=== PATIENT | female | born 1930 | race African-American/Black ===

== ENCOUNTER 2016-07-17 09:58 | Outpatient (CLI) | payer MEDICARE ==
[2016-07-17 11:21] LABS: #Lymphocytes 1.3 thou/uL (1.20-3.40); #Monocytes 0.4 thou/uL (0.11-0.59); #Neutrophils 1.7 thou/uL (1.40-6.50); %Basophils 2.4 % (0.0-1.0); %Eosinophils 3.9 % (0.0-10.0); %Lymphocytes 35.7 % (21.0-51.0); %Monocytes 11.6 % (0.0-10.0); %Neutrophils 46.4 % (42.0-75.0); Hemoglobin 13.2 g/dL (12.0-16.0); Mean Corpuscular HGB CONC 31.9 g/dL (32.0-36.0); Mean Corpuscular Hemoglobin 30.1 pg (27.0-31.0); Mean Corpuscular Volume 94.2 fL (81.0-99.0); Mean Platelet Volume 10.3 fL (7.4-10.4); Platelet Count 204 thou/uL (130-400); Red Blood Cell (RBC) Count 4.38 mill/uL (4.20-5.40); White Blood Cell (WBC) Count 3.7 thou/uL (4.8-10.8)
[2016-07-17 11:22] LABS: #Basophils 0.1 thou/uL (0.0-0.2); #Eosinphils 0.1 thou/uL (0.0-0.7)
[2016-07-17 11:36] LABS: ALT (SGPT) 13 U/L (0-55); AST (SGOT) 16 U/L (5-34); Albumin 4.1 g/dL (3.4-4.8); Alkaline Phosphatase 45 U/L (40-150); Anion Gap 13 mmol/L (10-20); BUN (Urea Nitrogen) 10 mg/dL (9.8-20.1); Bilirubin, Direct 0.3 mg/dL (0.1-0.3); Bilirubin, Total 0.8 mg/dL (0.2-1.2); Calc. Creatinine Clearance 0 mL/min (70-130); Calcium 9.7 mg/dL (7.8-10.44); Carbon Dioxide 30 mmol/L (23-31); Cardiac Risk 2.2 (Less than 4.5); Chloride 104 mmol/L (98-107); Cholesterol 159 mg/dL (< 200 Desired); Estimated GFR-MDRD 77; Glucose 90 mg/dL (83-110); HDL Cholesterol 72 mg/dL (>60 Neg Risk); LDL Cholesterol, Calculated 78 mg/dL; Potassium 3.7 mmol/L (3.5-5.1); Protein, Total 7.3 g/dL (5.8-8.1); Sodium 143 mmol/L (136-145); Triglycerides 46 mg/dL (Less than 150)
== END 2016-07-17 09:59 | disposition home or self-care (01) ==
LOC: MADLABBHPM 09:58
PROVIDERS: ATTEND Family Medicine
DX: I10 Essential (primary) hypertension (principal)
CPT/HCPCS: 36415; 80048; 80061; 80076; 85025

== ENCOUNTER 2016-10-17 09:30 | Outpatient (CLI) | payer MEDICARE ==
[2016-10-17 11:12] LABS: ALT (SGPT) 13 U/L (8-55); AST (SGOT) 16 U/L (5-34); Albumin 3.9 g/dL (3.4-4.8); Alkaline Phosphatase 49 U/L (40-150); Anion Gap 12 mmol/L (10-20); BUN (Urea Nitrogen) 12 mg/dL (9.8-20.1); Bilirubin, Direct 0.4 mg/dL (0.1-0.3); Calc. Creatinine Clearance 0 mL/min (70-130); Calcium 9.6 mg/dL (7.8-10.44); Carbon Dioxide 29 mmol/L (23-31); Cardiac Risk 2.2 (Less than 4.5); Chloride 104 mmol/L (98-107); Cholesterol 162 mg/dl (< 200 Desired); Estimated GFR-MDRD 77; Glucose 90 mg/dL (83-110); HDL Cholesterol 74 mg/dL (>60 Neg Risk); LDL Cholesterol, Calculated 77 mg/dL; Potassium 3.8 mmol/L (3.5-5.1); Protein, Total 7.5 g/dL (6.0-8.3); Sodium 141 mmol/L (136-145); Triglycerides 55 mg/dL (Less than 150)
== END 2016-10-17 09:31 | disposition home or self-care (01) ==
LOC: MADLABBHPM 09:30
PROVIDERS: ATTEND Family Medicine
DX: E78.00 Pure hypercholesterolemia, unspecified (principal)
CPT/HCPCS: 36415; 80048; 80061; 80076

== ENCOUNTER 2016-11-01 21:35 | Emergency (ER) | payer MEDICARE ==
[~2016-11-01 21:35] MED LIST: Iopamidol 370 76% 100 ML VIAL ONE
[2016-11-01] MEDS ORDERED: Ondansetron ODT 4 MG TAB ONE (22:04)
[2016-11-01 22:47] LABS: Eosinophils 3 % (0-10); Lymphocytes 7 % (21-51); MDiff Complete? YES; Mean Corpuscular HGB CONC 31.4 g/dL (32.0-36.0); Mean Corpuscular Hemoglobin 29.5 pg (27.0-31.0); Mean Corpuscular Volume 93.9 fl (81.0-99.0); Mean Platelet Volume 9.2 fL (7.4-10.4); Monocytes 5 % (0-10); Neutrophil 85 % (42-75); PLT Morphology Comment Appears Adequate; Platelet Count 215 thou/uL (130-400); RBC Distribution Width 12.7 % (11.5-14.5); Red Blood Cell (RBC) Count 5.08 mill/uL (4.20-5.40); White Blood Cell (WBC) Count 9.7 thou/uL (4.8-10.8)
[2016-11-01 22:50] LABS: ALT (SGPT) 15 U/L (8-55); AST (SGOT) 17 U/L (5-34); Albumin 4.4 g/dL (3.4-4.8); Alkaline Phosphatase 56 U/L (40-150); Anion Gap 19 mmol/L (10-20); BUN (Urea Nitrogen) 11 mg/dL (9.8-20.1); Bilirubin, Total 1.1 mg/dL (0.2-1.2); CK (CPK) 177 U/L (29-168); Calc. Creatinine Clearance 0 mL/min (70-130); Calcium 9.9 mg/dL (7.8-10.44); Carbon Dioxide 25 mmol/L (23-31); Chloride 101 mmol/L (98-107); Estimated GFR-MDRD 71; Globulin 4.2 g/dL (2.4-3.5); Glucose 136 mg/dL (83-110); Lipase 13 U/L (8-78); Potassium 4.1 mmol/L (3.5-5.1); Protein, Total 8.6 g/dL (6.0-8.3); Sodium 141 mmol/L (136-145)
[2016-11-01 22:52] LABS: CKMB 3.1 ng/mL (0-6.6); Troponin I 0.011 ng/mL (< 0.028)
--- NOTE | 2016-11-02 00:07 | CT ---
CT OF ABDOMEN AND PELVIS 11/01/16 COMPARISON: None. HISTORY: Nausea and vomiting. TECHNIQUE: Serial axial CT imaging obtained at 5 mm intervals from lung bases through pubic symphysis with IV c ontrast. Coronal reformatted imaging obtained. FINDINGS: There is marked elevation of the left hemidiaphragm. Thus, the stomach, colon in the left upper quad rant, and the spleen are not fully imaged on this exam. Imaged lung parenchyma appears grossly unremarkable. As the upper abdomen is not fully evaluated, evaluation for free intraperitoneal air is limited. Numerous hypodensities are noted within the hepatic parenchyma, some of which are too small to josé antonio cterize. A hypodensity in the right lobe of the liver on image 25 measures approximately 1.8 cm, con sistent with a cyst. There is a prominent cyst, exophytic in nature, associated with the left lobe o f the liver, measuring 9.9 cm in transverse dimension. Imaged spleen appears grossly unremarkable. T here is small volume fluid within the stomach. The pancreas appears grossly unremarkable as do bilateral adrenal glands. There are numerous low density lesions scattered throughout both kidneys. Within the left kidney thi s includes an exophytic upper pole lesion with internal hyperdensity and Hounsfield units of approxi mately 44. This lesion measures 2.5 cm in craniocaudal dimension and is not consistent with a cyst. This could represent a complex cyst or a solid renal mass. Within the right kidney, there is a hyper dense exophytic upper pole lesion measuring 1.9 cm with Hounsfield units of 60, also not consistent with a simple cyst. Hemorrhagic/complex cyst or solid renal mass is a possibility. A similar 1.4 cm hyperdense lesion emanates from the posteromedial mid pole of the right kidney on image 30. There is abnormal small volume free fluid in the pelvic cul-de-sac. The imaged colon contains significant stool, especially the transverse colon in region of the spleni c flexure. There are multiple fluid filled loops of small bowel within the mid abdomen right of midline extendi ng into the right lower quadrant. There is some adjacent fluid within the mesentery adjacent to mult iple fluid filled mildly distended small bowel loops in this region. The appendix appears grossly unremarkable. No drainable fluid collection or extraluminal gas is seen in this region. There is scattered atherosclerotic calcification of the abdominal aorta and its branches. No pelvic, retroperitoneal or mesenteric lymphadenopathy. 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 No worrisome lytic or bl astic bone lesions are seen. The gallbladder appears grossly unremarkable. IMPRESSION: 1. Multiple fluid filled, mildly dilated loops of small bowel are noted within the right mid ab domen/right lower quadrant with adjacent free fluid and mesenteric stranding. This could be related to partial small bowel obstruction/developing small bowel obstruction, focal ileus or gastroenteriti s. Close followup imaging and clinical correlation is required. No evidence for abscess. Small volum e associated free fluid present. 2. Low density lesions within the liver. 3. Exophytic lesions are noted within both kidneys. In each kidney, there are lesions which do not meet criteria for simple cysts, differential diagnosis including solid renal masses and hyperden se/complex/hemorrhagic cysts. Followup CT examination of the abdomen with and without contrast using a renal mass protocol advised. POS: FELISHA
== END 2016-11-02 00:09 | disposition home or self-care (01) ==
LOC: MADERS 21:35
DX: K52.9 Noninfective gastroenteritis and colitis, unspecified (principal); N28.1 Cyst of kidney, acquired; E78.5 Hyperlipidemia, unspecified; I10 Essential (primary) hypertension; Z79.899 Other long term (current) drug therapy
CPT/HCPCS: 74177; 80053; 82550; 82553; 83690; 84484; 85025; Q0162

== ENCOUNTER 2017-01-22 08:37 | Outpatient (CLI) | payer MEDICARE ==
[2017-01-22 09:52] LABS: #Basophils 0.1 thou/uL (0.0-0.2); #Eosinphils 0.1 thou/uL (0.0-0.7); #Lymphocytes 1.3 thou/uL (1.20-3.40); #Monocytes 0.5 thou/uL (0.11-0.59); #Neutrophils 2.3 thou/uL (1.40-6.50); %Eosinophils 3.4 % (0.0-10.0); %Lymphocytes 30.3 % (21.0-51.0); %Monocytes 11.1 % (0.0-10.0); %Neutrophils 53.3 % (42.0-75.0); Hemoglobin 13.7 g/dL (12.0-16.0); Mean Corpuscular HGB CONC 30.7 g/dL (32.0-36.0); Mean Corpuscular Hemoglobin 29.1 pg (27.0-31.0); Mean Corpuscular Volume 94.8 fl (81.0-99.0); Platelet Count 213 thou/uL (130-400); RBC Distribution Width 12.3 % (11.5-14.5); Red Blood Cell (RBC) Count 4.72 mill/uL (4.20-5.40); White Blood Cell (WBC) Count 4.4 thou/uL (4.8-10.8)
[2017-01-22 10:29] LABS: ALT (SGPT) 25 U/L (8-55); AST (SGOT) 18 U/L (5-34); Alkaline Phosphatase 47 U/L (40-150); Anion Gap 12 mmol/L (10-20); BUN (Urea Nitrogen) 17 mg/dL (9.8-20.1); Bilirubin, Direct 0.3 mg/dL (0.1-0.3); Bilirubin, Total 0.8 mg/dL (0.2-1.2); Calc. Creatinine Clearance 0 mL/min (70-130); Calcium 9.9 mg/dL (7.8-10.44); Carbon Dioxide 31 mmol/L (23-31); Cardiac Risk 2.5 (Less than 4.5); Chloride 102 mmol/L (98-107); Cholesterol 169 mg/dl (< 200 Desired); Estimated GFR-MDRD 67; Glucose 95 mg/dL (83-110); HDL Cholesterol 67 mg/dL (>60 Neg Risk); LDL Cholesterol, Calculated 92 mg/dL; Potassium 3.7 mmol/L (3.5-5.1); Protein, Total 7.8 g/dL (6.0-8.3); Sodium 141 mmol/L (136-145); Triglycerides 49 mg/dL (Less than 150)
== END 2017-01-22 08:38 | disposition home or self-care (01) ==
LOC: MADLABBHPM 08:37
PROVIDERS: ATTEND Family Medicine
DX: E78.00 Pure hypercholesterolemia, unspecified (principal)
CPT/HCPCS: 36415; 80048; 80061; 80076; 85025

== ENCOUNTER 2018-01-21 14:03 | Outpatient (CLI) | payer MEDICARE ==
[2018-01-21 14:15] LABS: Sodium 144 mmol/L (136-145)
[2018-01-21 14:16] LABS: Albumin 4.3 g/dL (3.4-4.8); Anion Gap 14 mmol/L (10-20); BUN (Urea Nitrogen) 11 mg/dL (9.8-20.1); Bilirubin, Direct 0.3 mg/dL (0.1-0.3); Bilirubin, Total 0.8 mg/dL (0.2-1.2); Calc. Creatinine Clearance 0 mL/min (70-130); Calcium 10.1 mg/dL (7.8-10.44); Carbon Dioxide 31 mmol/L (23-31); Chloride 103 mmol/L (98-107); Estimated GFR-MDRD 68; Glucose 98 mg/dL (83-110)
[2018-01-21 14:17] LABS: ALT (SGPT) 18 U/L (8-55); AST (SGOT) 17 U/L (5-34); Alkaline Phosphatase 58 U/L (40-150); Cardiac Risk 2.3 (Less than 4.5); Cholesterol 166 mg/dL (< 200 Desired); HDL Cholesterol 72 mg/dL (>60 Neg Risk); LDL Cholesterol, Calculated 85 mg/dL; Triglycerides 46 mg/dL (Less than 150)
== END 2018-01-21 14:04 | disposition home or self-care (01) ==
LOC: MADLABBHPM 14:03
PROVIDERS: ATTEND Family Medicine
DX: N18.3 Chronic kidney disease, stage 3 (moderate) (principal); E78.00 Pure hypercholesterolemia, unspecified
CPT/HCPCS: 36415; 80048; 80061; 80076

== ENCOUNTER 2018-05-02 09:54 | Outpatient (CLI) | payer MEDICARE ==
--- NOTE | 2018-05-02 12:18 | CT ---
CT BRAIN: DATE: 05/02/2018. PROVIDED CLINICAL HISTORY: Memory loss. FINDINGS: Comparison 02/27/2009. The ventricular system is unchanged in size and morphology. There is no evidence for intracranial he morrhage or mass effect. The extracranial soft tissues and osseous structures demonstrate an unremar kable CT appearance with the exception of mucous retention cyst in the left maxillary sinus. IMPRESSION: No evidence for intracranial hemorrhage mass effect. POS: FINN
== END 2018-05-02 09:55 | disposition home or self-care (01) ==
LOC: MADCT 09:54
PROVIDERS: ATTEND Family Medicine
DX: I10 Essential (primary) hypertension (principal)
CPT/HCPCS: 70450